=== PATIENT | female | born 2000 | race African-American/Black ===

== ENCOUNTER 2025-02-08 13:42 | Emergency (ER) | payer OTHER ==
[~2025-02-08] VITALS: Ht 162.6 cm; Wt 135.6 kg
[2025-02-08] MEDS: ACETAMINOPHEN 325 MG TAB PO ONE (15:02)
[2025-02-08 15:11] LABS: BASO # 0.1 10^3/uL (0.0-0.2); BASO % 0.7 % (0.0-1.0); EOS # 0.1 10^3/uL (0.0-0.5); EOS % 1.0 % (0.0-3.0); LYMPH # 3.2 10^3/uL (1.5-5.0); LYMPH % 29.5 % (24.0-44.0); MONO # 0.5 10^3/uL (0.0-0.8); MONO % 4.7 % (2.0-8.0); NEUTROPHILS # 6.9 10^3/uL (1.5-8.5); NEUTROPHILS % 63.8 % (36.0-66.0); PLATELET COUNT, AUTOMATED 308 10^3/uL (150-450)
[2025-02-08] MEDS: hydroCHLOROthiazide 25 MG TAB PO ONE (15:29)
[2025-02-08 15:36] LABS: ALT/SGPT 17 U/L (7.0-40); AST/SGOT 16 U/L (<34); CALCIUM LEVEL 9.1 MG/DL (8.5-10.1); CARBON DIOXIDE LEVEL 24 MMOL/L (20-31); CHLORIDE LEVEL 106 MMOL/L (98-107); CREATININE FOR GFR 1.51 MG/DL (0.55-1.30); GLOMERULAR FILTRATION RATE 49.2 (>60); POTASSIUM SERUM 4.6 MMOL/L (3.5-5.1); SODIUM LEVEL 140 MMOL/L (136-145)
[2025-02-08 15:36] LABS: ESTIMATED AVERAGE GLUCOSE 203.0 MG/DL (60-110)
[2025-02-08 15:39] LABS: HCG, SERUM QUALITATIVE NEGATIVE (NEGATIVE)
[2025-02-08] MEDS: FUROSEMIDE 40 MG TAB PO ONE (17:24)
[2025-02-08] MEDS: LOSARTAN 50 MG TABLET PO ONE (17:24)
[2025-02-08 17:36] LABS: APPEARANCE, URINE HAZY (CLEAR); BACTERIA, URINE AUTO 1+ (NEGATIVE); BILIRUBIN, URINE AUTO NEGATIVE (NEGATIVE); BLOOD, URINE BLOOD NEGATIVE (NEGATIVE); GLUCOSE, URINE (UA) AUTO 2+ mg/dL (NEGATIVE); KETONE, URINE AUTO NEGATIVE (NEGATIVE); LEUKOCYTE ESTERASE, URINE AUTO NEGATIVE (NEGATIVE); MUCUS, URINE SMALL (NEGATIVE); NITRITE, URINE AUTO NEGATIVE (NEGATIVE); PROTEIN, URINE AUTO 3+ mg/dL (NEGATIVE); RBC, URINE AUTO 1 /HPF (0-3); SPECIFIC GRAVITY URINE AUTO 1.016 (1.002-1.035); SQUAMOUS EPITHELIAL CELL UR AU 7 /HPF (0-6); UROBILINOGEN, URINE AUTO 0.2 mg/dL (0.0-2.0); WBC, URINE AUTO 3 /HPF (0-3)
[2025-02-08 19:32] VITALS: BP 178/90
[2025-02-08] MEDS: LABETALOL 100 MG/20 ML VIAL IV STA (19:32)
[2025-02-08 20:42] VITALS: O2SAT 97
[2025-02-08 20:55] VITALS: TEMP 97.7
[2025-02-08] MEDS ORDERED: LABE100T40 PO (22:12)
[2025-02-08 22:30] VITALS: BP 182/90
== END 2025-02-08 22:47 | disposition home or self-care (01) ==
LOC: M ED 13:42
DX: E11.65 Type 2 diabetes mellitus with hyperglycemia (principal); I10 Essential (primary) hypertension; Z91.018 Allergy to other foods; Z79.899 Other long term (current) drug therapy
CPT/HCPCS: 80053; 81001; 83036; 83880; 84443; 84703; 85025; 93005; 93041; 96374; 99285; J1920